=== PATIENT | female | born 1990 | race Caucasian/White ===

== ENCOUNTER 2016-08-21 12:28 | Emergency (ER) | payer BC, OTHER ==
[2016-08-21 16:45] LABS: BASOPHILS 0.3 %; BASOPHILS ABSOLUTE 0.03 10/3/uL (0.0-0.16); EOSINOPHILS 2.4 %; EOSINOPHILS ABSOLUTE 0.26 10/3/uL (0.0-0.53); HEMATOCRIT 40.6 % (36.0-48.0); HEMOGLOBIN 14.2 g/dL (12.0-16.0); IMMATURE GRANULOCYTES 0.5 %; IMMATURE GRANULOCYTES ABSOLUTE 0.05 10/3/uL (0.0-0.11); LYMPHOCYTES 28.2 %; LYMPHOCYTES ABSOLUTE 3.02 10/3/uL (0.67-4.30); MEAN CORPUSCULAR HEMOGLOB 30.7 pg (26.0-34.0); MEAN CORPUSCULAR VOLUME 87.7 fL (80-100); MEAN PLATELET VOLUME 9.1 fL (9.2-13.0); MONOCYTES ABSOLUTE 0.75 10/3/uL (0.21-1.20); NEUTROPHILS 61.6 %; PLATELET COUNT 314 10/3/uL (150-400); RBC DISTRIBUTION WIDTH 13.5 % (12.0-16.0); RED CELL COUNT 4.63 10/6/uL (4.0-5.6); WHITE BLOOD CELLS 10.7 10/3/uL (4.5-10.5)
[2016-08-21 16:46] LABS: MANUAL DIFF NO %
[2016-08-21 16:47] LABS: ASCORBIC ACID (UR NOT ORDER) NEG (NEG); BILIRUBIN, URINE NEGATIVE (NEG); ER URINALYSIS TAT 0 Hrs 08 Mins; KETONE, URINE NEGATIVE (NEG); LEUKOCYTE ESTERASE(NOT OR TRACE (NEG); NITRITE (URINE) NEG (NEG); WBC (NOT ORDERED) (RFLEX) 1 (0-5)
[2016-08-21 17:01] LABS: ALKALINE PHOSPHATASE 94 U/L (45-117); BUN (BLOOD UREA NITROGEN) 10 MG/DL (6-23); CHLORIDE, SERUM 105 MMOL/L (96-112); CO2 (CARBON DIOXIDE) 28 MMOL/L (24-34); CREATININE 0.74 MG/DL (0.55-1.02); GFR AFRICAN AMERICAN 131 ML/MIN (>=60); GFR NON AFRICAN AMERICAN 113 ML/MIN (>=60); GLUCOSE, SERUM 86 MG/DL (60-99); POTASSIUM, SERUM 3.7 MMOL/L (3.5-5.3); SGOT(AST) 21 U/L (5-40); SGPT(ALT) 32 U/L (5-65); SODIUM, SERUM 141 MMOL/L (135-148); TOTAL BILIRUBIN 0.4 MG/DL (0-1.2)
== END 2016-08-21 19:13 | disposition home or self-care (01) ==
LOC: ER 12:28
PROVIDERS: Nurse Practitioner
DX: G40.909 Epilepsy, unspecified, not intractable, without status epilepticus (principal); Z88.8 Allergy status to other drugs, medicaments and biological substances
CPT/HCPCS: 80053; 81001; 84703; 85025; 99285; A9270-GY